=== PATIENT | female | born 1995 | race Caucasian/White ===

== ENCOUNTER 2018-05-24 12:22 | Emergency (ER) | payer MEDICAID, OTHER ==
[~2018-05-24] VITALS: Ht 167.6 cm; Wt 90.0 kg
[2018-05-24 12:57] VITALS: BP 116/70
== END 2018-05-24 15:26 | disposition left against medical advice (07) ==
LOC: ER 12:22
DX: Z53.21 Procedure and treatment not carried out due to patient leaving prior to being seen by health care provider (principal); R00.0 Tachycardia, unspecified; R42 Dizziness and giddiness
CPT/HCPCS: 93005

== ENCOUNTER 2018-06-07 19:02 | Observation (INO) | payer MEDICAID ==
[~2018-06-07] VITALS: Ht 167.6 cm; Wt 91.2 kg
[2018-06-07] MEDS ORDERED: PNV1TABL50 PO (19:50)
== END 2018-06-07 20:00 | disposition home or self-care (01) ==
LOC: 8 EST LDRP 19:02
PROVIDERS: ADMIT Obstetrics & Gynecology; ATTEND Obstetrics & Gynecology
DX: O26.893 Other specified pregnancy related conditions, third trimester (principal); R10.30 Lower abdominal pain, unspecified; M54.9 Dorsalgia, unspecified; Z3A.39 39 weeks gestation of pregnancy
CPT/HCPCS: 99281; G0378

== ENCOUNTER 2018-06-12 00:55 | Inpatient (IN) | payer MEDICAID, OTHER ==
[~2018-06-12] VITALS: Ht 167.6 cm; Wt 91.2 kg
[~2018-06-12 00:55] MED LIST: PNV1TABL50 PO
[2018-06-12] MEDS ORDERED: DEXT 5%/LR + PITOCIN 20UNITS/L 1,000 ML IV SCH ×3 (01:52→18:50)
[2018-06-12] MEDS ORDERED: CARBOPROST TROMETHAMINE 250 MCG/ML AMPUL IM PRN (02:00)
[2018-06-12] MEDS ORDERED: LIDOCAINE HCL 1% 20ML VIAL (Pyxis) INJ INFIL PRN (02:00)
[2018-06-12] MEDS ORDERED: NALOXONE HCL 0.4 MG/ML 1ML VIAL IM PRN (02:00)
[2018-06-12] MEDS ORDERED: METHYLERGONOVINE MALEATE 0.2 MG/ML IM PRN (02:00)
[2018-06-12] MEDS ORDERED: MISOPROSTOL 200MCG TABLET VG PRN (02:00)
[2018-06-12] MEDS ORDERED: DEXT 5%/LACTATED RINGERS 1,000 ML IV PRN (02:00)
[2018-06-12] MEDS: LACTATED RINGERS 1,000 ML IV SCH ×3 (02:57→12:08)
[2018-06-12 03:10] LABS: CLARITY URINE CLEAR (CLEAR); COLOR URINE YELLOW (YELLOW); KETONES URINE NEGATIVE (NEGATIVE); LEUKOCYTE ESTERASE URINE NEGATIVE (NEGATIVE); NITRITE URINE NEGATIVE (NEGATIVE); OCCULT BLOOD URINE TRACE (NEGATIVE); PH URINE 6.5 (4.5-8.0); PROTEIN URINE NEGATIVE (NEGATIVE); SPECIFIC GRAVITY URINE 1.014 (1.005-1.030); UROBILINOGEN URINE 0.2 E.U./dL (0.2-1.0)
[2018-06-12 03:19] LABS: BASOPHILS % 0.4 % (0.0-2.0); EOSINOPHILS % 0.9 % (0.0-5.0); HEMOGLOBIN. 10.7 g/dL (12.0-16.0); LYMPHOCYTES % 22.2 % (20.0-50.0); MEAN CORPUSCULAR HEMOGLOBIN 27.6 pg (28.0-32.0); MEAN CORPUSCULAR VOLUME 82.2 fL (81.0-99.0); MONOCYTES % 7.9 % (2.0-8.0); NEUTROPHILS % 68.6 % (40.0-76.0); PLATELET 186 x1000/uL (130-400); RED BLOOD CELL COUNT 3.89 mill/uL (4.2-5.4); RED CELL DISTRIBUTION WIDTH 14.5 % (11.6-14.6)
[2018-06-12 03:20] LABS: *AMPHETAMINES SCREEN URINE NEGATIVE (NEGATIVE); *BARBITURATES SCREEN URINE NEGATIVE (NEGATIVE); *BENZODIAZEPINES SCREEN URINE NEGATIVE (NEGATIVE)
[2018-06-12 03:21] LABS: *COCAINE SCREEN URINE NEGATIVE (NEGATIVE); CANNABINOID URINE SCREEN NEGATIVE (NEGATIVE); METHADONE URINE SCREEN NEGATIVE (NEGATIVE); OPIATES URINE SCREEN NEGATIVE (NEGATIVE); PHENCYCLIDINE URINE SCREEN NEGATIVE (NEGATIVE)
[2018-06-12 03:30] LABS: INR 0.9; PARTIAL THROMBOPLASTIN TIME 25.2 sec (23.4-31.0); PROTHROMBIN TIME 9.4 sec (9.1-11.1)
[2018-06-12] MEDS: DEXT 5%/LR + PITOCIN 20UNITS/L 1,000 ML IV SCH ×2 (03:31→19:04)
[2018-06-12] MEDS: BUTORPHANOL TARTRATE 2 MG/ML VIAL IV PRN ×2 (05:31→08:04)
[2018-06-12] MEDS ORDERED: ROPIVACAINE HCL/PF EPIDURAL 200 ML EP SCH (08:15)
[2018-06-12 10:27] LABS: HEPATITIS B SURFACE ANTIGEN NEGATIVE
[2018-06-12] MEDS ORDERED: LACTATED RINGERS 1,000 ML IV SCH (14:30)
[2018-06-12] MEDS ORDERED: ACETAMINOPHEN WITH CODEINE 300/30MG TABLET PO PRN (19:00)
[2018-06-12] MEDS ORDERED: BENZOCAINE/LANOLIN/ALOE VERA SPRAY TOP PRN (19:00)
[2018-06-12] MEDS ORDERED: RHO(D) IMMUNE GLOBULIN 300 MCG/SYR IM PRN (19:00)
[2018-06-12] MEDS ORDERED: IBUPROFEN 400MG TABLET PO PRN (19:00)
[2018-06-12] MEDS ORDERED: ONDANSETRON HCL 4MG/2ML INJ IV PRN (20:19)
[2018-06-12 21:30] VITALS: BP 110/61
[2018-06-13 05:48] VITALS: BP 112/63
[2018-06-13 07:31] VITALS: BP 93/50
[2018-06-13] MEDS: IBUPROFEN 800MG TABLET PO PRN ×2 (08:13→16:19)
[2018-06-13 12:02] LABS: BASOPHILS % 0.4 % (0.0-2.0); EOSINOPHILS % 0.4 % (0.0-5.0); HEMATOCRIT. 30.8 % (36.0-48.0); HEMOGLOBIN. 10.2 g/dL (12.0-16.0); LYMPHOCYTES % 18.2 % (20.0-50.0); MEAN CORPUSCULAR HEMOGLOBIN 27.7 pg (28.0-32.0); MEAN CORPUSCULAR VOLUME 83.9 fL (81.0-99.0); MEAN PLATELET VOLUME 9.8 fl (7.4-10.4); MONOCYTES % 6.4 % (2.0-8.0); NEUTROPHILS % 74.6 % (40.0-76.0); PLATELET 186 x1000/uL (130-400); RED BLOOD CELL COUNT 3.67 mill/uL (4.2-5.4); RED CELL DISTRIBUTION WIDTH 14.4 % (11.6-14.6)
[2018-06-13 16:21] VITALS: BP 106/71
[2018-06-13 19:15] VITALS: BP 106/63
[2018-06-13 23:30] VITALS: BP 113/57
[2018-06-14 03:20] VITALS: BP 102/56
[2018-06-14 08:20] VITALS: BP 105/62
== END 2018-06-14 10:50 | disposition home or self-care (01) | DRG 560 ==
LOC: OBSVTOIN 00:55 → 8 EST LDRP 00:55 → 8EST 20:30
PROVIDERS: ADMIT Obstetrics & Gynecology; ATTEND Obstetrics & Gynecology
PROC: 10E0XZZ Delivery of Products of Conception, External Approach (ICD-10-PCS; principal; 2018-06-12)
PROC: 3E0R3BZ Introduction of Anesthetic Agent into Spinal Canal, Percutaneous Approach (ICD-10-PCS; 2018-06-12)
PROC: 00HU33Z Insertion of Infusion Device into Spinal Canal, Percutaneous Approach (ICD-10-PCS; 2018-06-12)
PROC: 0UQGXZZ Repair Vagina, External Approach (ICD-10-PCS; 2018-06-12)
PROC: 3E0234Z Introduction of Serum, Toxoid and Vaccine into Muscle, Percutaneous Approach (ICD-10-PCS; 2018-06-12)
DX: O69.81X0 Labor and delivery complicated by cord around neck, without compression, not applicable or unspecified (principal); O71.4 Obstetric high vaginal laceration alone; D64.9 Anemia, unspecified; O26.893 Other specified pregnancy related conditions, third trimester; O48.0 Post-term pregnancy; O99.02 Anemia complicating childbirth; Z37.0 Single live birth; Z3A.40 40 weeks gestation of pregnancy; Z67.11 Type A blood, Rh negative
CPT/HCPCS: 36415; 76815; 80305; 86592; 86703; 86762; 86850; 86900; 87340; G0378; J0595; J2210; J2405; J2590; J2795; J7120; A4315